=== PATIENT | female | born 1960 | race Caucasian/White ===

== ENCOUNTER → 2016-06-09 | Outpatient (REF) | payer MEDICARE, MEDICAID | LOC: M LAB REF 16:12 | PROVIDERS: ATTEND Physician Assistant Medical | DX: J01.90 Acute sinusitis, unspecified (principal) ==

== ENCOUNTER → 2016-11-16 | Outpatient (CLI) | payer MEDICARE, MEDICAID ==
[2016-11-16 15:31] LABS: COMPLEMENT C4 34.4 MG/DL (10-40); IMMUNOGLOBULIN M 27.1 MG/DL (40-230)
[2016-11-18 14:11] LABS: ALPHA 1 ANTITRYPSIN 133 mg/dL (90-200); D001-IgE D pteronyssinus >100 kU/L (Class VI); E005-IgE Dog Dander 0.45 kU/L (Class I); F002-IgE Milk 3.23 kU/L (Class III); F004-IgE Wheat 0.89 kU/L (Class II); F013-IgE Peanut 0.68 kU/L (Class II); F014-IgE Soybean 1.14 kU/L (Class II); F026-IgE Pork < 0.10 kU/L (Class 0); F027-IgE Beef 0.39 kU/L (Class I); F245-IgE Egg, Whole 3.21 kU/L (Class III); FX02-IgE Food Mix (Sea Foods) Negative (.); G002-IgE Bermuda Grass < 0.10 kU/L (Class 0); G008-IgE Kentucky Bluegrass < 0.10 kU/L (Class 0); M001-IgE Penicillium chrysogen 0.92 kU/L (Class II); M002 IgE Cladosporium herbaru 0.24 kU/L (Class 0/I); M003 IgE Aspergillus fumigatu 0.44 kU/L (Class I); M006-IgE Alternaria alternata < 0.10 kU/L (Class 0); T001-IgE Maple/Box Elder < 0.10 kU/L (Class 0); T003-IgE Common Silver Birch 0.77 kU/L (Class II); T007-IgE Oak, White 0.18 kU/L (Class 0/I); T015-IgE Ash, White 0.11 kU/L (Class 0/I); T041-IgE Hickory, White 0.58 kU/L (Class II); W001-IgE Ragweed, Short 0.61 kU/L (Class II); W009-IgE Plantain, English 0.13 kU/L (Class 0/I); W014-IgE Pigweed, Rough < 0.10 kU/L (Class 0); W018-IgE Sheep Sorrel < 0.10 kU/L (Class 0)
== END ==
LOC: M LAB 14:00
PROVIDERS: ATTEND Allergy & Immunology
DX: J30.1 Allergic rhinitis due to pollen (principal); J30.81 Allergic rhinitis due to animal (cat) (dog) hair and dander; J30.89 Other allergic rhinitis; J45.20 Mild intermittent asthma, uncomplicated; J32.0 Chronic maxillary sinusitis; H10.45 Other chronic allergic conjunctivitis

== ENCOUNTER → 2016-11-16 | Outpatient (CLI) | payer MEDICARE, MEDICAID ==
--- NOTE | 2016-11-16 15:11 | REP ---
MAXILLOFACIAL CT WITHOUT CONTRAST: HISTORY: Chronic sinusitis. COMPARISON: 09/26/2012 The right frontal sinus is hypoplastic. The patient is status post bilateral uncinectomy. Minimal mucosal thickening is present in the maxillary sinuses. The remaining sinuses are clear. The middle and inferior nasal turbinates are partially paradoxical. The nasal septum is midline. The cribriform plate, medial us of the orbits and optic canals are intact. The carotid canals form a segment of the posterolateral us of the sphenoid sinus. The sphenoid sinus septum inserts into the left internal carotid canal wall. IMPRESSION: 1. Postoperative change as described above. 2. Sinus mucosal thickening as described above. Signed by Jayme Garrison MD 11/16/2016 03:12 P
== END ==
LOC: M RAD 13:22
PROVIDERS: ATTEND Physician Assistant Medical
DX: J30.1 Allergic rhinitis due to pollen (principal); J30.81 Allergic rhinitis due to animal (cat) (dog) hair and dander; J30.89 Other allergic rhinitis; J45.20 Mild intermittent asthma, uncomplicated; J32.0 Chronic maxillary sinusitis; H10.45 Other chronic allergic conjunctivitis; Z98.84 Bariatric surgery status